=== PATIENT | male | born 1980 | race Caucasian/White ===

== ENCOUNTER 2019-12-10 04:36 | Emergency (ER) | payer BC, OTHER ==
[2019-12-10 04:45] VITALS: TEMP 97.8
[2019-12-10] MEDS ORDERED: SODIUM CHLORIDE 0.9% 1,000 ML IV STA (04:48)
[2019-12-10] MEDS ORDERED: KETOROLAC 30 MG/ML 1 ML VIAL IVP STA (04:56)
--- NOTE | 2019-12-10 04:57 | ED ---
General Adult HPI - General Chief complaint: Abdominal Pain Stated complaint: Abdominal pain, groin pain Time Seen by Provider: 12/10/19 04:40 Source: patient Mode of arrival: ambulatory Limitations: no limitations - History of Present Illness Initial comments: Dictation was produced using [employer] dictation software. please excuse any grammatical, word or spelling errors. This patient was cared for during a federal and state declared state of ergency secondary to Covid 19 Chief Complaint: 39-year-old male pastmedicalhistorypresentswithleft- sidedflankpain History of Present Illness: 39-year-old male who presents today with 1 week of intermittent bouts of left-sided flank pain. Patient reports that his symptoms have been increasing in intensity and frequency. He states that his pain begins in his left flank area radiates up to his left groin. He does report dark urinary characteristic. Denies any gross hematuria. Patient denies any fever, chills or night sweats. For set his symptoms are very severe so the worse pain that he's ever felt in his life. He states that the pain is colicky in nature. Patient denies any history of kidney stones. The ROS documented in this emergency department record has been reviewed and confirmed by me. Those systems with pertinent positive or negative responses have been documented in the HPI. All other systems are other negative and/or noncontributory. PHYSICAL EXAM: General Impression: Alert and oriented x3, acute distress secondary to pain HEENT: Normocephalic atraumatic, extra-ocular movements intact, pupils equal and reactive to light bilaterally, mucous membranes moist. Cardiovascular: Heart regular rate and rhythm Chest: Able to complete full sentences, no retractions, no tachypnea Abdomen: Bowel sounds present, abdomen soft, non-tender, non-distended, no or ganomegaly Musculoskeletal: Pulses present and equal in all extremities, no peripheral edema Motor: no focal deficits noted Neurological: CN II-XII grossly intact, no focal motor or sensory deficits noted Skin: Intact with no visualized rashes Psych: Normal affect and mood ED course: 39-year-old male presents with chief complaint of left-sided flank pain. His upon arrival shows heart rate of 105, rest of vital signs within acceptable limits. Clinical presentation concerning for kidney stone. Patient does not have any history of nephrolithiasis. Patient will be ordered for computed tomography scan. Laboratory evaluation obtained. Mild leukocytosis of 13.3 likely secondary to stress. Metabolic panel is unremarkable. Patient given intravenous fluids and IV analgesia. He is observed in the emergency department for approximately 2 hours. Is reevaluated with dramatic and immediate improvement of symptoms. Nephrolithiasis likely passed. Patient clear for discharge. Is given outp atient follow-up with urology. Patient urine sample sent to microbiology for culture and sensitivities. - Related Data Allergies Allergy/AdvReac Type Severity Reaction Status Date / Time Cephalosporins Allergy Anaphylaxis Verified 12/10/19 04:45 Penicillins Allergy Anaphylaxis Verified 12/10/19 04:45 Review of Systems ROS Statement: Those systems with pertinent positive or pertinent negative responses have been documented in the HPI. ROS Other: All systems not noted in ROS Statement are negative. Past Medical History Past Medical History: No Reported History History of Any Multi-Drug Resistant Organisms: None Reported Past Surgical History: No Surgical Hx Reported Additional Past Surgical History / Comment(s): Right eye surgery Past Psychological History: No Psychological Hx Reported Smoking Status: Current every day smoker Past Alcohol Use History: None Reported Past Drug Use History: None Reported General Exam Limitations: no limitations Course Vital Signs 12/10/19 04:41 Temperature 97.8 F Pulse Rate 105 H Respiratory 18 Rate Blood Pressure 161/100 O2 Sat by Pulse 100 Oximetry Medical Decision Making - Lab Data Result diagrams: 12/10/19 05:09 12/10/19 05:09 Lab Results 12/10/19 12/10/19 Range/Units 05:09 05:09 WBC 13.3 H (3.8-10.6) k/uL RBC 4.80 (4.30-5.90) m/uL Hgb 14.6 (13.0-17.5) gm/dL Hct 43.8 (39.0-53.0) % MCV 91.2 (80.0-100.0) fL MCH 30.3 (25.0-35.0) pg MCHC 33.3 (31.0-37.0) g/dL RDW 12.8 (11.5-15.5) % Plt Count 176 (150-450) k/uL Neutrophils % 77 % Lymphocytes % 16 % Monocytes % 4 % Eosinophils % 1 % Basophils % 0 % Neutrophils # 10.2 H (1.3-7.7) k/uL Lymphocytes # 2.2 (1.0-4.8) k/uL Monocytes # 0.5 (0-1.0) k/uL Eosinophils # 0.2 (0-0.7) k/uL Basophils # 0.1 (0-0.2) k/uL Sodium 136 L (137-145) mmol/L Potassium 4.6 (3.5-5.1) mmol/L Chloride 105 (98-107) mmol/L Carbon Dioxide 23 (22-30) mmol/L Anion Gap 8 mmol/L BUN 21 H (9-20) mg/dL Creatinine 1.01 (0.66-1.25) mg/dL Est GFR (CKD-EPI)AfAm >90 (>60 ml/min/1.73 sqM) Est GFR (CKD-EPI)NonAf >90 (>60 ml/min/1.73 sqM) Glucose 133 H (74-99) mg/dL Calcium 9.3 (8.4-10.2) mg/dL Disposition Clinical Impression: Nephrolithiasis Disposition: HOME SELF-CARE Condition: Good Instructions (If sedation given, give patient instructions): Kidney Stones (ED) Additional Instructions: Today you were diagnosed with left-sided kidney stone. The kidney stone measured 3 mm. Given dramatic improvement of her symptoms stone likely passed. Given outpatient follow-up with urology. Please follow-up. Please seek medical attention with any worsening or recurrence of symptoms. Otherwise please make sure to obtain adequate hydration to prevent formation of future stones. Is patient prescribed a controlled substance at d/c from ED?: No Referrals: Santi Foster MD [STAFF PHYSICIAN] - 1-2 days Time of Disposition: 05:57
[2019-12-10 05:19] LABS: Basophils # (A) 0.1 k/uL (0-0.2); Basophils % (A) 0 %; Eosinophils # (A) 0.2 k/uL (0-0.7); Eosinophils % (A) 1 %; HCT 43.8 % (39.0-53.0); HGB 14.6 gm/dL (13.0-17.5); Lymphocytes # (A) 2.2 k/uL (1.0-4.8); Lymphocytes % (A) 16 %; MCH 30.3 pg (25.0-35.0); MCHC 33.3 g/dL (31.0-37.0); MCV 91.2 fL (80.0-100.0); Mean Platelet Volume 7.8; Monocytes # (A) 0.5 k/uL (0-1.0); Monocytes % (A) 4 %; Neutrophils # (A) 10.2 k/uL (1.3-7.7); Neutrophils % (A) 77 %; Platelet Count 176 k/uL (150-450); RDW 12.8 % (11.5-15.5); WBC 13.3 k/uL (3.8-10.6)
[2019-12-10 05:36] LABS: African American GFR (CKD) >90 (>60 ml/min/1.73 sqM); Anion Gap 8 mmol/L; Blood Urea Nitrogen 21 mg/dL (9-20); Calcium 9.3 mg/dL (8.4-10.2); Carbon Dioxide 23 mmol/L (22-30); Chloride 105 mmol/L (98-107); Glucose 133 mg/dL (74-99); Non-African American GFR(CKD) >90 (>60 ml/min/1.73 sqM); Potassium 4.6 mmol/L (3.5-5.1); Sodium 136 mmol/L (137-145)
--- NOTE | 2019-12-10 05:43 | CT ---
EXAMINATION TYPE: CT abdomen pelvis wo con DATE OF EXAM: 12/10/2019 COMPARISON: Back pain HISTORY: R/O Stones, Abd pain, Back pain CT DLP: 879.70 mGycm Automated exposure control for dose reduction was used. Lung bases are clear. There is no pleural effusion. Heart size is normal. There is no pericardial eff usion. Liver spleen pancreas gallbladder appear normal. Bile ducts are not dilated. Stomach appears normal. There is no adrenal mass. Kidneys have normal size and contour. There is mild left-sided hydronephrosis and hydroureter. There is 3 mm calculus distal left ureter. Bladder distends smoothly. There is no inguinal hernia. There is no free fluid in the pelvis. Appendix appears normal. There is no mesenteric edema. There is no ascites or free air. There is no s ign of a bowel obstruction. Lumbar vertebra have normal spacing and alignment. Posterior elements are intact. Bony pelvis is inta ct. IMPRESSION: Small obstructing calculus distal left ureter with left-sided hydronephrosis and hydroureter. No othe r urinary tract calculus seen. Normal appendix.
[2019-12-10 06:32] LABS: Appearance,Urine Clear (Clear); Bilirubin,Urine Negative (Negative); Blood,Urine Moderate (Negative); Color,Urine Light Yellow; Glucose,Urine (UA) Negative (Negative); Ketones,Urine Negative (Negative); Leukocyte Esterase,Urine Negative (Negative); Mucus,Urine Rare /hpf; Nitrite,Urine Negative (Negative); PH, Urine 5.5 (5.0-8.0); Protein,Urine Negative (Negative); RBC,Urine 50 /hpf (0-5); Specific Gravity,Urine 1.017 (1.001-1.035); Urobilinogen,Urine <2.0 mg/dL (<2.0); WBC,Urine 1 /hpf (0-5)
[2019-12-10 06:33] VITALS: BP 120/72; PULSE 91; RESP 16
== END 2019-12-10 06:38 | disposition home or self-care (01) ==
LOC: EC 04:36
DX: N20.0 Calculus of kidney (principal); F17.200 Nicotine dependence, unspecified, uncomplicated; Z88.0 Allergy status to penicillin; Z88.1 Allergy status to other antibiotic agents
CPT/HCPCS: 36415; 80048; 85025; 81001; 74176; 99284; 96374; 96361; J1885

== ENCOUNTER 2022-05-19 01:43 | Emergency (ER) | payer BC, OTHER ==
[2022-05-19] MEDS ORDERED: ORPHENADRINE 30 MG/ML 2 ML VIAL IM STA (01:51)
[2022-05-19] MEDS ORDERED: KETOROLAC 15 MG/ML 1 ML VIAL IM STA (01:51)
[2022-05-19 01:52] VITALS: RESP 18; TEMP 97.8
[2022-05-19] MEDS ORDERED: MORPHINE SULFATE 4 MG/ML SYRINGE IM STA (01:52)
--- NOTE | 2022-05-19 01:56 | ED ---
Back Pain HPI - General Chief Complaint: Back Pain/Injury Stated Complaint: back pain Time Seen by Provider: 05/19/22 01:45 Source: patient, RN notes reviewed Limitations: no limitations - History of Present Illness Initial Comments: This is a pleasant 41-year-old male who presents emergency department complaining of pain to his right rib area. Patient states he's had a cough for about 7 days. Patient states she started having some pain in his right rib cage and went to urgent care today. Patient states that she was diagnosed with intercostal muscle strain. Patient states he went home and was doing okay. Patient then coughed and felt sudden pain to his right ribs which are exacerbated by any movement. Pain is sharp in nature. Patient denies any shortness of breath. He has had 2 negative COVID-19 test. No fever. No headache, no fever or chills, no changes in vision or hearing, no sore throat or difficulty with speech, no neck pain, no chest pain or shortness of breath, no abdominal pain, no nausea or vomiting, no changes in urination or bowel movements, no numbness or tingling, no extremity pain, no skin rashes or lesions. Past medical, surgical, social, and family history reviewed. MD Complaint: back pain - Related Data Previous Rx's Medication Instructions Recorded Acetaminophen-Codeine 300-30mg 1 each PO Q4H PRN #18 tablet 05/19/22 [Tylenol w/codeine #3] Cyclobenzaprine [Flexeril] 10 mg PO TID PRN #20 tab 05/19/22 Ibuprofen [Motrin] 600 mg PO Q8HR PRN #30 tab 05/19/22 Allergies Allergy/AdvReac Type Severity Reaction Status Date / Time Cephalosporins Allergy Anaphylaxis Verified 12/10/19 04:45 Penicillins Allergy Anaphylaxis Verified 12/10/19 04:45 Review of Systems ROS Statement: Those systems with pertinent positive or pertinent negative responses have been documented in the HPI. ROS Other: All systems not noted in ROS Statement are negative. Past Medical History Past Medical History: No Reported History History of Any Multi-Drug Resistant Organisms: None Reported Past Surgical History: No Surgical Hx Reported Additional Past Surgical History / Comment(s): Right eye surgery Past Psychological History: No Psychological Hx Reported Past Alcohol Use History: None Reported Past Drug Use History: None Reported General Exam - General Exam Comments Initial Comments: Patient does not appear to be ill or toxic. Patient in distress secondary to right rib pain. Vital signs reviewed. Patient mildly tachycardic. Blood pressure elevated. Normal respiratory rate. Limitations: no limitations General appearance: alert, in distress Head exam: Present: atraumatic, normocephalic, normal inspection Eye exam: Present: normal appearance, PERRL, EOMI. Absent: scleral icterus, conjunctival injection, periorbital swelling ENT exam: Present: normal exam, normal oropharynx, mucous membranes moist, normal external ear exam Neck exam: Present: normal inspection, full ROM. Absent: tenderness, meningismus, lymphadenopathy Respiratory exam: Present: normal lung sounds bilaterally, chest wall tenderness (Patient has exquisite tenderness over the right lateral ribs, mostly at the costochondral junction adjacent to room #5 or 6. Patient also has some tenderness to the right thoracic paraspinals.). Absent: respiratory distress, wheezes, rales, rhonchi, stridor, accessory muscle use, decreased breath sounds, prolonged expiratory Cardiovascular Exam: Present: normal rhythm, tachycardia (Mild, likely related to pain), normal heart sounds. Absent: systolic murmur, diastolic murmur, rubs, gallop, clicks GI/Abdominal exam: Present: soft, normal bowel sounds. Absent: distended, tenderness, guarding, rebound, rigid Extremities exam: Present: normal inspection, full ROM, normal capillary refill. Absent: tenderness, pedal edema, joint swelling, calf tenderness Back exam: Present: normal inspection Neurological exam: Present: alert, oriented X3, CN II-XII intact Psychiatric exam: Present: normal affect, normal mood Skin exam: Present: warm, dry, intact, normal color. Absent: rash, cyanosis, diaphoretic, erythema, urticaria, vesicles, petechiae, pallor, mottled, abrasion Course Vital Signs 05/19/22 01:49 Temperature 97.8 F Pulse Rate 112 H Respiratory 18 Rate Blood Pressure 170/98 O2 Sat by Pulse 97 Oximetry - Reevaluation(s) Reevaluation #1: 05/19/22 02:39 Medical record is reviewed Symptoms are improved here in the emergency department Patient is informed of results and questions answered Patient in no distress Medical Decision Making - Medical Decision Making Patient presents with pain after coughing. Patient states he was doing well prior to that. He had no chest pain or shortness of breath. Patient has had some muscular pain after having a cough for about 7 days. He's had 2 negative COVID-19 test. No fever. She states this pain was sudden onset after coughing. He located in the right ribs, very reproducible. Patient states he heard a snap. This is indicative of a cough related fracture. Patient looks to be well otherwise. I suspect this is not bacterial pneumonia or other intrathoracic etiologies. Appears to be consistent with [place] skeletal injury. Patient was improved after pain medications. X-rays did not show any abnormality. I did reassess the patient. Patient has tenderness in the right intercostal space between the fifth and sixth rib, mainly over the intercostal muscle. There is no break in skin integrity. No erythema. No rash. I suspect this is intercostal muscle strain. I did review the films myself. No fracture. No osseous lesion. No infiltrate. No pneumothorax. I discussed conservative measures with the patient to include lifting restrictions, limiting bending and twisting. Short course of Tylenol with codeine, Flexeril, and ibuprofen. Patient told to avoid driving or operating machinery while taking the muscle relaxer and pain medication. Patient voiced understanding. All questions answered. Patient's blood pressure was elevated. Patient has no primary care physician. I did give him a primary care doctor to follow up with Patient was told to return to the ER for any signs or symptoms worsen. Told to return immediately if any other problems arise. All questions answered. Treatment plan discussed. Patient in agreement Every effort has been made to ensure accuracy of this dictation. However, due to the limitations of electronic medical records and dictation devices, errors in charting still occur. The case was discussed in detail with ED attending physician. Presentation, gwen vincent, treatment plan discussed in detail. Assistant Professor Of Drama Dr. Pillai Disposition Clinical Impression: Intercostal muscle strain Disposition: HOME SELF-CARE Condition: Good Instructions (If sedation given, give patient instructions): Thoracic Back Strain (ED), Costochondritis (ED) Additional Instructions: Ice 20 minutes on and off for times daily. Take the anti-inflammatory medication, pain medication, and the muscle relaxer as directed. Do not operate machinery or drive vehicles while taking the muscle relaxer or the pain medication. Follow-up with your regular physician as directed. Return to the ER immediately if any symptoms worsen, new symptoms arise, or any other problems develop. Is patient prescribed a controlled substance at d/c from ED?: No Referrals: Dagoberto Anaya [STAFF PHYSICIAN] - 05/24/22 Time of Disposition: 02:45
--- NOTE | 2022-05-19 02:29 | XR ---
EXAMINATION TYPE: XR ribs RT w pa chest xray DATE OF EXAM: 05/19/2022 COMPARISON: NONE HISTORY: Pain TECHNIQUE: 5 views FINDINGS: Heart and mediastinum are normal. Lungs are clear of infiltrate. The right ribs appear inta ct. No pleural effusion or pneumothorax. Right shoulder appears intact. IMPRESSION: Normal chest. Normal right ribs.
[2022-05-19] MEDS ORDERED: ACET/COD 300 MG/30 MG STARTER PACK 6 TAB BTL PO STA (02:41)
[2022-05-19] MEDS ORDERED: CYCLOBENZAPRINE 10MG STARTER 3 TAB BTL PO STA (02:41)
[2022-05-19] MEDS ORDERED: IBUPROFEN 600 MG STARTER PACK 4 TAB BTL PO STA (02:41)
[2022-05-19 02:54] VITALS: BP 122/71; PULSE 109
== END 2022-05-19 03:12 | disposition home or self-care (01) ==
LOC: EC 01:43
DX: S29.019A Strain of muscle and tendon of unspecified wall of thorax, initial encounter (principal); Z88.1 Allergy status to other antibiotic agents; Z88.0 Allergy status to penicillin; X50.9XXA Other and unspecified overexertion or strenuous movements or postures, initial encounter; Y92.89 Other specified places as the place of occurrence of the external cause
CPT/HCPCS: 71101; 99283; 96372; J2270; J2360; J1885